=== PATIENT | female | born 1970 | race Caucasian/White ===

== ENCOUNTER 2021-08-29 09:28 | Emergency (ER) | payer OTHER ==
[2021-08-29 10:05] LABS: HEMOGLOBIN 12.7 gm/dl (12.3-15.3); RED BLOOD COUNT 4.13 M/UL (4.00-5.10); WHITE BLOOD COUNT 8.5 K/UL (4.5-11.0)
[2021-08-29 10:34] LABS: BUN/CREATININE RATIO 26 (0-10)
[2021-08-29] MEDS ORDERED: CARAFATE1 GM PO (15:05)
[2021-08-29] MEDS ORDERED: PROTONIX40 MG PO (15:05)
== END 2021-08-29 15:15 | disposition home or self-care (01) ==
LOC: ER1 09:28
PROVIDERS: Emergency Medicine
DX: K29.70 Gastritis, unspecified, without bleeding (principal); K21.9 Gastro-esophageal reflux disease without esophagitis; F17.200 Nicotine dependence, unspecified, uncomplicated
CPT/HCPCS: 71045; 80053; 82550; 82553; 83690; 83735; 83874; 84484; 84703; 85025; 93005; 96374; 96375; 99284; C9113; J2405; Q9967